=== PATIENT | male | born 1995 | race Hispanic/Latino ===

== ENCOUNTER 2019-08-20 18:45 | Emergency (ER) | payer OTHER, SELFPAY ==
--- NOTE | ~2019-08-20 | XR_ITS ---
EXAMINATION: XR chest 2V 08/20/2019 19:24 INDICATION: Chest pain with exertion PROCEDURE: 2 view chest COMPARISON: No prior studies for comparison. FINDINGS: The lungs are clear. The cardiomediastinal silhouette is within normal limits. There are no pleural effusions. There is no pneumothorax suspected. IMPRESSION: 1: NO ACUTE CARDIOPULMONARY DISEASE. Reviewed, dictated and finalized at location A. [facility]
--- NOTE | 2019-08-20 18:48 | ECG_ITS ---
Measurements Intervals [place] Rate: 90 P: 25 UT: 184 QRS: -26 QRSD: 104 T: 63 QT: 323 QTc: 396 Interpretive Statements SINUS RHYTHM BORDERLINE R WAVE PROGRESSION, ANTERIOR LEADS BORDERLINE ECG Electronically Signed On 08-20-2019 19:07:08 PROTOTYPE MACHINIST by Richard Oseguera D.O.
[2019-08-20 18:49] VITALS: BP 143/81; PULSE 93; RESP 18; TEMP 37.3; O2SAT 99
[2019-08-20 19:06] LABS: Basophils Absolute Auto 0.1 K/mm3 (0.0-0.1); Basophils Percent Auto 0.6 % (0.2-1.2); Eosinophils Absolute Auto 0.2 K/mm3 (0-0.3); Eosinophils Percent Auto 1.5 % (0-4.4); Hemoglobin 12.3 g/dL (14.0-18.0); Immature Granulocyte Absolute 0.05 K/mm3 (0.00-0.031); Immature Granulocyte Percent A 0.4 % (0-0.5); Immature Platelet Fraction Pct 2.7 % (0.9-11.2); Lymphocytes Absolute Auto 3.65 K/mm3 (0.9-3.2); Mean Corpuscular Hemoglobin 18.5 pg (26-34); Mean Corpuscular Volume 61.7 fl (80-100); Mean Platelet Volume 10.2 fl (7.4-10.4); Monocytes Absolute Auto 0.8 K/mm3 (0.1-0.6); Monocytes Percent Auto 6.3 % (2.6-8.5); Neutrophils Absolute Auto 7.8 K/mm3 (1.3-6.7); Neutrophils Percent Auto 62.2 % (45.5-73.1); Platelet Count Result 247 k/mm3 (150-375); Red Blood Count 6.65 M/mm3 (4.6-6.20); Red Cell Distribution Width 20.4 % (11.5-14.5); White Blood Count 12.6 K/mm3 (4.5-10.0)
[2019-08-20 19:15] LABS: Blood Urea Nitrogen 17 mg/dL (9-20); Calcium 9.3 mg/dL (8.4-10.2); Carbon Dioxide 26 mmol/L (22-30); Chloride 99 mmol/L (98-107); Estimated CRCL calculation 169 ml/min; Estimated Glomerular Filt Rate > 60; Glucose 101 mg/dL (75-110); Potassium 3.9 mmol/L (3.4-5.0); Prothrombin Time 12.5 Seconds (11.1-14.7); Sodium 138 mmol/L (137-145)
[2019-08-20 19:16] LABS: Partial Thromboplastin Time 28.6 SECONDS (22.3-36.8)
[2019-08-20 19:27] LABS: Troponin I < 0.012 ng/mL (0.000-0.034)
[2019-08-20 22:13] LABS: Troponin I < 0.012 ng/mL (0.000-0.034)
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
[2019-08-20 22:45] VITALS: BP 130/75; PULSE 93; PULSE 96; RESP 21; TEMP 37.7; O2SAT 98
[2019-08-20 23:01] LABS: D Dimer 0.27 ug/mL (<0.48)
[2019-08-20] MEDS: KETOROLAC 30 MG/ML VIAL (*BKC) IV PUSH (23:07)
[2019-08-20 23:33] VITALS: BP 120/72; PULSE 92; RESP 20; O2SAT 99
== END 2019-08-20 23:59 | disposition home or self-care (01) ==
PROVIDERS: Emergency Medicine; Emergency Provider Emergency Medicine
DX: R07.89 Other chest pain (principal); R94.31 Abnormal electrocardiogram [ECG] [EKG]
CPT/HCPCS: 36415; 71046; 80048; 84484; 85025; 85055; 85380; 85610; 85730; 93005; 96374; 99284; J1885

== ENCOUNTER 2020-11-23 17:29 | Emergency (ER) | payer OTHER, SELFPAY ==
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
[2020-11-23 17:31] VITALS: BP 143/86; PULSE 88; RESP 20; TEMP 36.5; O2SAT 99
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
== END 2020-11-23 19:03 | disposition home or self-care (01) ==
PROVIDERS: Emergency Provider Emergency Medicine
DX: R07.81 Pleurodynia (principal); X50.0XXA Overexertion from strenuous movement or load, initial encounter
CPT/HCPCS: 71101; 99283

== ENCOUNTER 2021-04-19 00:51 | Emergency (ER) | payer OTHER, MEDICAID, SELFPAY ==
--- NOTE | ~2021-04-19 | XR_ITS ---
EXAMINATION: XR knee LT 3V DATE: 04/19/2021 01:29 INDICATION: Nontraumatic left knee pain TECHNIQUE: Anteroposterior, oblique and crosstable lateral views of the left knee were obtained COMPARISON: None. FINDINGS: Alignment is normal. No fracture. Joint spaces appear normal on nonweightbearing imaging with no ost eophytes to suggest osteoarthritis. No joint effusion/layering lipohemarthrosis. Soft tissues are unr emarkable. IMPRESSION: 1. Negative left knee radiographs. Reviewed, dictated and finalized at location A.
[2021-04-19 00:52] VITALS: BP 164/101; PULSE 82; RESP 18; TEMP 36.9; O2SAT 100
--- NOTE | 2021-04-19 04:39 | ED.LOWEXIN ---
HPI - Extremity Injury (Lower) General Chief Complaint: Extremity Injury, Lower Stated Complaint: left knee pain Time Seen by Provider: 04/19/21 04:04 Source: patient and RN notes reviewed Mode of arrival: ambulatory Limitations: no limitations History of Present Illness HPI Narrative: This is 25 year old male who presents for evaluation of left knee pain. Patient has been having pain to his left knee for 1 week but it worsened tonight. He denies any injury but states he works at a job that he is constantly on his feet. He denies fever, redness or swelling. Denies calf pain. He states his pain was severe at midnight so he took ibuprofen 800 mg. He has not pain currently. His pain worsens with flexing but he states it is not as severe now due to taking ibuprofen. Related Data Allergies Allergy/AdvReac Type Severity Reaction Status Date / Time No Known Allergies Allergy Verified 11/23/20 17:37 Review of Systems Review of Systems: All systems reviewed & are unremarkable except as noted in HPI and below PMFSH Past Medical History Medical History Healthy adult male Surgical History Surgical History No history of previous surgery Social History Social History Smoking status: Never smoker Gender identity (if verbalized by the patient): Male Exam Const: General: no acute distress and alert Orientation/consciousness: patient oriented x3 Eyes: EOM: EOMs intact bilaterally Resp: Effort & Inspection: normal respiratory effort Skin: General skin exam: normal color Rashes: no rashes Neuro: General: patient oriented x3 and moves all extremities Extrem: Other: no calf tenderness, no joint swelling, no joint redness. His has full range of motion Psych: Mental Status: mental status grossly normal Affect: normal affect Course Reevaluation(s) Reevaluation #1: I Discussed with patient xray preliminarily is no acute fracture but he will be called if discrepancy found. Date: 04/19/21 Time: 04:43 Vital Signs Vital signs: Vital Signs Temperature 98.5 F 04/19/21 00:52 Pulse Rate 82 04/19/21 00:52 Respiratory Rate 18 04/19/21 00:52 Blood Pressure 164/101 H 04/19/21 00:52 Pulse Oximetry 100 04/19/21 00:52 Temperature 98.5 F 04/19/21 00:52 Pulse Rate 78 04/19/21 04:58 Respiratory Rate 20 04/19/21 04:58 Blood Pressure 159/93 H 04/19/21 04:58 Pulse Oximetry 97 04/19/21 04:58 MDM - Extremity Injury (Lower) Imaging Data Attestation: I personally reviewed and interpreted this imaging study as follows: My impression: left knee xray- no acute fracture, mild effusion Discharge Plan Discharge Clinical Impression: Acute pain of left knee Patient Disposition: Home, Self-Care Condition: Stable Instructions: Antibiotic Form, Knee Pain (ED), Arthralgia (ED) Additional Instructions: Radiologist will review xray later today . If a discrepancy is found you will be called. Continue to wear knee brace. Take NSAIDS such as ibuprofen for pain. You can try over the counter creams such as Voltaran for your pain as well. Follow up with your primary care provider. Prescriptions: No Action ibuprofen [IBU] 600 mg tablet 600 mg PO Q6H PRN (Reason: pain) Qty: 20 RF: 0 ibuprofen [IBU] 600 mg tablet 600 mg PO Q6H PRN (Reason: fever or pain) Qty: 7 RF: 0 cyclobenzaprine 10 mg tablet 10 mg PO TID PRN (Reason: muscle spasm) Qty: 14 RF: 0 Follow-up/Referrals: Avril,Olamide Amaya APRN [Primary Care Provider] - Stand Alone Forms: Work/School Release IP
[2021-04-19 04:58] VITALS: BP 159/93; PULSE 78; RESP 20; O2SAT 97
== END 2021-04-19 05:13 | disposition home or self-care (01) ==
PROVIDERS: Emergency Provider General Practice; PCP Nurse Practitioner Family
DX: M25.562 Pain in left knee (principal)
CPT/HCPCS: 73562; 99283

== ENCOUNTER 2022-08-19 20:00 | Emergency (ER) | payer OTHER, SELFPAY ==
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
[2022-08-19 20:10] VITALS: BP 128/61; PULSE 111; RESP 18; TEMP 37.2; O2SAT 97
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
[2022-08-19] MEDS: ACETAMINOPHEN 500 MG TABLET 1000 MG PO (21:33)
== END 2022-08-19 22:06 | disposition home or self-care (01) ==
PROVIDERS: Emergency Provider Physician Assistant; PCP Nurse Practitioner Family
DX: S39.012A Strain of muscle, fascia and tendon of lower back, initial encounter (principal); S49.92XA Unspecified injury of left shoulder and upper arm, initial encounter; S89.92XA Unspecified injury of left lower leg, initial encounter; M47.816 Spondylosis without myelopathy or radiculopathy, lumbar region; M47.812 Spondylosis without myelopathy or radiculopathy, cervical region; V43.52XA Car driver injured in collision with other type car in traffic accident, initial encounter
CPT/HCPCS: 72125; 72131; 73030; 73080; 73590; 99284; A9270

== ENCOUNTER 2023-03-06 12:55 | Emergency (ER) | payer OTHER, MEDICAID, SELFPAY ==
[2023-03-06 13:08] VITALS: BP 125/64; PULSE 97; RESP 24; TEMP 36.9; O2SAT 97
--- NOTE | 2023-03-06 13:08 | ED.URI ---
HPI - URI/Sore Throat General Chief Complaint: Upper Respiratory Infection Stated Complaint: Sore Throat,Unable to Swallow Food Source: patient and RN notes reviewed History of Present Illness HPI Narrative: 27 yo M presents to urgent care with complaints of a sore throat since Saturday. Pt states he woke up in the middle of the night the other night and took an ibuprofen and woke up soaking wet in sweat. Pt states it feels like his throat will close up on him intermittently. Denies any further fevers, chills, chest pain, SOB, N/V/D, ear pain, or TRISTAN. Related Data Home Medications Medication Instructions Recorded Confirmed metformin 500 mg tablet,extended 500 mg PO DAILY 03/06/23 03/06/23 release 24 hr Allergies Allergy/AdvReac Type Severity Reaction Status Date / Time No Known Allergies Allergy Verified 03/06/23 13:02 Review of Systems Review of Systems: Pertinent positives and pertinent negatives per HPI. [facility] Past Medical History Medical History Healthy adult male Surgical History Surgical History No history of previous surgery Social History Social History Smoking status: Never smoker Gender identity (if verbalized by the patient): Male Comments At the time of my signature, I reviewed and agree with the nursing past medical, surgical, social, and family history. There is no relevant family history pertinent to the patient complaint. Exam Narrative: GENERAL: This is a well-nourished, well-developed patient, in no apparent distress. HEAD: normocephalic, atraumatic. EYES: Sclera clear/white. Vision is grossly intact. EARS: External ears normal, auditory canals clear and without drainage. Hearing grossly intact. NOSE: External nose normal with no obvious nasal discharge, nares without redness, no rhinorrhea. THROAT: Mucous membranes moist, posterior pharynx erythremic. Tonsils are 1+ bilaterally with no exudate. NECK: Neck supple, non-tender without lymphadenopathy, masses or thyromegaly. CARDIOVASCULAR: Regular rate RESPIRATORY: No respiratory distress SKIN: warm, intact with no suspicious lesions or rash, good texture and turgor. NEURO: awake, alert, and oriented to person, place and time. There were no obvious focal neurologic abnormalities. Course Course Level of Care: Express Care Visit Vital Signs Vital signs: Vital Signs Temperature 98.5 F 03/06/23 13:08 Pulse Rate 97 03/06/23 13:08 Respiratory Rate 24 H 03/06/23 13:08 Blood Pressure 125/64 03/06/23 13:08 Pulse Oximetry 97 03/06/23 13:08 Oxygen Delivery Room Air 03/06/23 13:08 Temperature 98.5 F 03/06/23 13:08 Pulse Rate 97 03/06/23 13:08 Respiratory Rate 24 H 03/06/23 13:08 Blood Pressure 125/64 03/06/23 13:08 Pulse Oximetry 97 03/06/23 13:08 Oxygen Delivery Room Air 03/06/23 13:08 reviewed MDM - URI/Sore Throat MDM Narrative Medical decision making narrative: Rapid strep is negative in the office; however we will send to the lab for confirmation; there is a small percentage chance that it can come back positive; if it is, we will call you in 2-3days; and your prescription will be call in to your pharmacy. However, there is NO indication for antibiotic at this time. -Increase your fluids and Vitamin C. -Oral rinses such as: Salt water gargles and/or may use topical anesthetic (eg. Chloraseptic spray) or lozenges to relieve dryness or throat pain. -Take tylenol and ibuprofen as needed for pain and fever as directed. -Frequent hand washing or hand senior net software engineer is one of the best ways to prevent spread of infection. -Follow up with primary care provider in 2-3 days if condition is not improving or seek ER visit if your child starts breathing fast/has trouble breathing, is not drinking enough fluids, muffle
== END 2023-03-06 13:35 | disposition home or self-care (01) ==
PROVIDERS: Emergency Provider Nurse Practitioner Family; PCP Nurse Practitioner Family
DX: J02.9 Acute pharyngitis, unspecified (principal)
CPT/HCPCS: 87081; 87880; 99213; G0463